=== PATIENT | female | born 1995 | race Two or more races ===

== ENCOUNTER 2020-10-07 08:55 | Day surgery (SDC) | payer OTHER ==
[2020-10-07] MEDS ORDERED: MORGIDOX100 MG PO (13:20)
[2020-10-07] MEDS ORDERED: NAPR500T14 PO (13:20)
== END 2020-10-07 20:00 | disposition home or self-care (01) ==
LOC: CIR.AMB 08:55
PROVIDERS: ATTEND Obstetrics & Gynecology
DX: N84.0 Polyp of corpus uteri (principal); D25.0 Submucous leiomyoma of uterus; Z20.822 Contact with and (suspected) exposure to COVID-19